=== PATIENT | male | born 1990 | race Caucasian/White ===

== ENCOUNTER 2019-03-25 14:40 | Emergency (ER) | payer OTHER ==
[~2019-03-25] VITALS: Ht 172.7 cm; Wt 77.1 kg
[2019-03-25 14:46] VITALS: BP 137/72
--- NOTE | 2019-03-25 16:23 | NUR ---
pt. ambulated to ER bed 7
--- NOTE | 2019-03-25 16:23 | NUR ---
TIM FONG. PT AAO X4 C/O DIZZINESS X1 WEEK, COUGHING, HEADACHE, -N/V. WENT TO SEE PCP WITH DX OF VERTIGO, TX OF MECLIZINE AND DIMETANE-DX. GETTING WORSE TODAY. HOB UP. BED SIDE RAILS UP X1. ON LOW BED POSITION, LOCKED. ER TO EVALUATE PT.
--- NOTE | 2019-03-25 16:40 | NUR ---
DR MCCULLOUGH AT BEDSIDE FOR PT EVALUATION
[2019-03-25] MEDS ORDERED: hydrOXYzine HCL 25 MG TAB PO ONE (16:45)
[2019-03-25] MEDS ORDERED: ONDANSETRON 4 MG ODT PO ONE (16:45)
[2019-03-25] MEDS ORDERED: predniSONE 20 MG TAB PO ONE (16:45)
[2019-03-25] MEDS ORDERED: FAMOTIDINE 20 MG TAB PO ONE (16:45)
[2019-03-25 18:43] VITALS: BP 128/74
--- NOTE | 2019-03-25 18:43 | NUR ---
Patient discharged with v/s stable. Written and verbal after care instructions given and explained. Patient alert, oriented and verbalized understanding of instructions. Ambulatory with steady gait. All questions addressed prior to discharge. ID band removed. Patient advised to follow up with PMD. Rx of Promethazine suppository given. Patient educated on indication of medication including possible reaction and side effects. Opportunity to ask questions provided and answered.
== END 2019-03-25 18:43 | disposition home or self-care (01) ==
LOC: MED 14:40
DX: R42 Dizziness and giddiness (principal); H92.02 Otalgia, left ear
CPT/HCPCS: 99284; J7512; Q0162